=== PATIENT | female | born 1975 | race Caucasian/White ===

== ENCOUNTER 2016-08-30 17:37 | Emergency (ER) | payer OTHER ==
[~2016-08-30] VITALS: Ht 162.6 cm; Wt 83.5 kg
[2016-08-30 17:38] VITALS: BP 135/65
[2016-08-30] MEDS ORDERED: SYNT25TA PO (17:50)
[2016-08-30] MEDS ORDERED: DRIS50002 PO (17:50)
[2016-08-30] MEDS ORDERED: TOPA100T8 PO (17:50)
--- NOTE | 2016-08-30 19:45 | REP ---
CT Head without contrast HISTORY: Migraine headache COMPARISON: 03/12/2013 There is no intraparenchymal hemorrhage, acute infarct, mass or midline shift. The ventricular system is normal in appearance. There is no extra cerebral collection. There is no fracture. The visualized sinuses are clear. IMPRESSION: There is no intracranial lesion. Signed by Igor Jackson MD 08/30/2016 07:37 P
== END 2016-08-30 20:08 | disposition home or self-care (01) ==
LOC: M ED 18:51
DX: R51 Headache (principal); Z79.899 Other long term (current) drug therapy; Z88.5 Allergy status to narcotic agent; Z88.8 Allergy status to other drugs, medicaments and biological substances

== ENCOUNTER 2016-11-13 20:20 | Emergency (ER) | payer OTHER ==
[~2016-11-13] VITALS: Ht 162.6 cm; Wt 88.4 kg
[~2016-11-13 20:20] MED LIST: DRIS50002 PO; SYNT25TA PO; TOPA100T12 PO
[2016-11-13] MEDS ORDERED: NAPROXEN 250 MG TAB PO ONE (21:00)
[2016-11-13] MEDS ORDERED: CARISOPRODOL 350 MG TAB PO ONE (21:00)
[2016-11-13] MEDS ORDERED: CYCL10TA PO (21:04)
[2016-11-13] MEDS ORDERED: NAPR500T PO (21:04)
[2016-11-13 21:30] VITALS: BP 116/78
[2017-03-20] MEDS ORDERED: VALT1TAB PO (14:23)
[2017-03-20] MEDS ORDERED: KEFL500C17 PO (14:23)
[2017-03-20] MEDS ORDERED: NAPR500T PO (14:23)
== END 2016-11-13 21:32 | disposition home or self-care (01) ==
LOC: M ED 20:20
DX: M54.41 Lumbago with sciatica, right side (principal); M54.42 Lumbago with sciatica, left side; G43.909 Migraine, unspecified, not intractable, without status migrainosus; E03.9 Hypothyroidism, unspecified; Z79.899 Other long term (current) drug therapy; Z88.5 Allergy status to narcotic agent; Z88.8 Allergy status to other drugs, medicaments and biological substances

== ENCOUNTER 2016-11-22 22:35 | Emergency (ER) | payer OTHER ==
[~2016-11-22] VITALS: Ht 162.6 cm; Wt 89.6 kg
[~2016-11-22 22:35] MED LIST changes: +CYCL10TA PO; +NAPR500T PO
[2016-11-22] MEDS ORDERED: NAPROXEN 250 MG TAB PO ONE (23:15)
[2016-11-22] MEDS ORDERED: NAPR500T PO (23:56)
[2016-11-23] VITALS: BP 124/96
--- NOTE | 2016-11-23 02:19 | REP ---
Clinical: Trauma. Technique: AP, lateral, bilateral oblique views right foot . Findings: The osseous structures and joint spaces are intact and demonstrate age-related degenerative changes. There is no evidence for acute fracture or dislocation. Surrounding soft tissues are unremarkable. No subcutaneous emphysema or radiodense foreign body. Impression: Age-related degenerative changes. No acute fracture or dislocation. Signed by Ga Cowart MD 11/23/2016 02:11 A
[2017-03-20] MEDS ORDERED: KEFL500C17 PO (14:23)
[2017-03-20] MEDS ORDERED: NAPR500T PO (14:23)
[2017-03-20] MEDS ORDERED: VALT1TAB PO (14:23)
== END 2016-11-23 00:06 | disposition home or self-care (01) ==
LOC: M ED 22:35
DX: S90.31XA Contusion of right foot, initial encounter (principal); W23.1XXA Caught, crushed, jammed, or pinched between stationary objects, initial encounter; Y92.838 Other recreation area as the place of occurrence of the external cause; Y93.01 Activity, walking, marching and hiking; Y99.9 Unspecified external cause status

== ENCOUNTER 2018-02-25 20:36 | Emergency (ER) | payer SELFPAY, MEDICAID, OTHER ==
[2018-02-25] MEDS: KETOROLAC 60 MG/2 ML VIAL (J1885) IM (22:59)
[2018-02-26] MEDS ORDERED: ANEXSIA, NORCO 7.5MG/325MG TABLET(HYDROCODONE/APAP) PO (00:15)
[2018-02-26] MEDS: ANEXSIA, NORCO 7.5MG/325MG TABLET(HYDROCODONE/APAP) PO (00:20)
== END 2018-02-26 00:26 | disposition home or self-care (01) ==
LOC: M ED 02-26 00:26
DX: R51 Headache (principal); G58.8 Other specified mononeuropathies; M50.10 Cervical disc disorder with radiculopathy, unspecified cervical region; R42 Dizziness and giddiness; E03.9 Hypothyroidism, unspecified; Z86.69 Personal history of other diseases of the nervous system and sense organs; Z88.5 Allergy status to narcotic agent; Z88.8 Allergy status to other drugs, medicaments and biological substances
CPT/HCPCS: J1885

== ENCOUNTER → 2018-07-10 | Outpatient (REF) | payer OTHER, MEDICAID ==
[~2018-07-10] MED LIST changes: -DRIS50002 PO; +DRIS50003 PO; +KEFL500C17 PO; +MECL-86 PO; +NAPR-50 PO; -NAPR500T PO; +VALT1TAB PO
[2018-07-10 18:53] LABS: BASO % 0.5 % (0.0-1.0); EOS # 0.1 10^3/uL (0.0-0.50); EOS % 1.6 % (0.0-3.0); HEMOGLOBIN 14.4 g/dl (12.0-15.5); LYMPH % 33.9 % (24.0-44.0); MEAN CORPUSCULAR HEMOGLOBIN 28.1 pg (27.0-33.0); MEAN CORPUSCULAR HGB CONC 33.5 g/dl (32.0-36.5); MONO # 0.6 10^3/uL (0.0-0.8); MONO % 6.6 % (0.0-5.0); NEUTROPHILS % 56.9 % (36.0-66.0); PLATELET COUNT, AUTOMATED 344 10^3/uL (150-450); RED BLOOD COUNT 5.12 10^6/uL (4.00-5.40); WHITE BLOOD COUNT 8.8 10^3/uL (4.0-10.0)
[2018-07-10 19:05] LABS: ALBUMIN 3.9 GM/DL (3.2-5.2); ALT/SGPT 30 U/L (12-78); BILIRUBIN,TOTAL 0.3 MG/DL (0.2-1.0); BLOOD UREA NITROGEN 14 MG/DL (7-18); CALCIUM LEVEL 8.8 MG/DL (8.5-10.1); CARBON DIOXIDE LEVEL 25 MEQ/L (21-32); CHLORIDE LEVEL 106 MEQ/L (98-107); CHOLESTEROL LEVEL 156 MG/DL (<200); GLOMERULAR FILTRATION RATE > 60.0 (>58); GLUCOSE, FASTING 79 MG/DL (70-100); HDL CHOLESTEROL 30 MG/DL (>40); LDL CHOLESTEROL 89 MG/DL (<100); NON-HDL-C 126 MG/DL; POTASSIUM SERUM 4.3 MEQ/L (3.5-5.1); SODIUM LEVEL 139 MEQ/L (136-145); TOTAL PROTEIN 7.9 GM/DL (6.4-8.2); TRIGLYCERIDES LEVEL 185 MG/DL (<150)
[2018-07-10 19:19] LABS: HEMOGLOBIN A1c 5.4 %
[2018-07-11 09:04] LABS: TOTAL 25(OH) VITAMIN D 27.1 NG/ML (30.0-100.0)
== END ==
LOC: M LAB REF 17:37
PROVIDERS: ATTEND Nurse Practitioner Family
DX: Z13.9 Encounter for screening, unspecified (principal)

== ENCOUNTER 2019-01-02 16:58 | Emergency (ER) | payer OTHER ==
[~2019-01-02] VITALS: Ht 162.6 cm; Wt 85.0 kg
[~2019-01-02 16:58] MED LIST changes: +AUGM875T28 PO; +BUPR300T92; +LEVO25TA5; +MELO7.5T7; -NAPR-50 PO; +NAPR-837 PO; +TOPI50TA9; +TYLE500T78 PO
[2019-01-02 19:42] VITALS: BP 126/75
--- NOTE | 2019-01-03 09:40 | REP ---
Left ring finger four views: There is an intra-articular nondisplaced avulsion fracture at the base of the middle phalange anteriorly. There is no dislocation. Mineralization is normal. There is mild joint space narrowing of the PIP and DIP articulations compatible with mild osteoarthritis. Electronically Signed by Marko Velasquez MD 01/02/2019 06:32 P
== END 2019-01-02 19:43 | disposition home or self-care (01) ==
LOC: M ED 16:58
DX: S62.651A Nondisplaced fracture of middle phalanx of left index finger, initial encounter for closed fracture (principal); W50.1XXA Accidental kick by another person, initial encounter; Y92.9 Unspecified place or not applicable; Y93.11 Activity, swimming; Y99.9 Unspecified external cause status; E03.9 Hypothyroidism, unspecified; Z72.0 Tobacco use; Z79.899 Other long term (current) drug therapy; Z88.5 Allergy status to narcotic agent; Z88.6 Allergy status to analgesic agent

== ENCOUNTER 2019-02-11 16:45 | Emergency (ER) | payer OTHER ==
[~2019-02-11] VITALS: Ht 162.6 cm; Wt 94.8 kg
[~2019-02-11 16:45] MED LIST changes: +BUPR300T34; -BUPR300T92
[2019-02-11 21:15] VITALS: BP 126/74
[2019-02-11] MEDS ORDERED: AMOXICILLIN 500 MG CAP PO ONE (21:45)
[2019-02-11] MEDS ORDERED: ACETAMINOPHEN TAB 650MG DOSE (2X325MG) PO ONE (21:45)
[2019-02-11 22:15] LABS: INFLUENZA A AMPLIFICATION NEGATIVE (NEGATIVE); INFLUENZA B AMPLIFICATION NEGATIVE (NEGATIVE)
[2019-02-11] MEDS ORDERED: AMOX500C PO (22:30)
== END 2019-02-11 22:54 | disposition home or self-care (01) ==
LOC: M ED 16:45
DX: J02.9 Acute pharyngitis, unspecified (principal); E03.9 Hypothyroidism, unspecified; G43.909 Migraine, unspecified, not intractable, without status migrainosus; F41.9 Anxiety disorder, unspecified; F32.9 Major depressive disorder, single episode, unspecified

== ENCOUNTER 2019-11-14 17:09 | Emergency (ER) | payer OTHER ==
[~2019-11-14] VITALS: Ht 162.6 cm; Wt 93.6 kg
[~2019-11-14 17:09] MED LIST changes: +AMOX500C PO; -BUPR300T34; +BUPR300T92; +CYCL-707 PO; -CYCL10TA PO
[2019-11-14 17:10] VITALS: BP 135/77
[2019-11-14] MEDS ORDERED: FLUO20CA22 (17:15)
--- NOTE | 2019-11-14 18:51 | REP ---
Clinical: Trauma primarily involving first digit. Technique: AP, lateral, bilateral oblique views of the right hand. Findings: The osseous structures appear intact without evidence for acute fracture or dislocation. No subcutaneous emphysema. There appears to be a 4 mm foreign body in the subcutaneous tissues adjacent to the fifth carpometacarpal joint which requires correlation and may represent old injury. Impression: 1. No evidence for acute fracture dislocation. 2. Small foreign body requires correlation. Electronically Signed by Ga Cowart MD 11/14/2019 06:42 P
== END 2019-11-14 17:56 | disposition home or self-care (01) ==
LOC: M ED 17:09
DX: S67.01XA Crushing injury of right thumb, initial encounter (principal); Y92.009 Unspecified place in unspecified non-institutional (private) residence as the place of occurrence of the external cause; Y93.89 Activity, other specified; Y99.8 Other external cause status

== ENCOUNTER 2020-08-05 22:34 | Emergency (ER) | payer OTHER ==
[~2020-08-05] VITALS: Ht 162.6 cm; Wt 100.0 kg
[~2020-08-05 22:34] MED LIST changes: +FLUO20CA22
[2020-08-05] MEDS ORDERED: MECL-86 (22:53)
[2020-08-05] MEDS ORDERED: LEVO25TA5 (22:53)
[2020-08-05] MEDS ORDERED: ALBU8.5H (22:53)
[2020-08-05] MEDS ORDERED: NALT50TA4 (22:53)
[2020-08-05] MEDS ORDERED: HYDR-3363 (22:53)
[2020-08-05] MEDS ORDERED: FUROSEMIDE 40MG/4ML VIAL (J1940) IV ONE (23:20)
[2020-08-05 23:27] LABS: BASO # 0.1 10^3/uL (0.0-0.2); BASO % 0.6 % (0.0-1.0); EOS # 0.1 10^3/uL (0.0-0.5); EOS % 1.4 % (0.0-3.0); HEMATOCRIT 38.4 % (36.0-47.0); HEMOGLOBIN 12.6 g/dl (12.0-15.5); LYMPH # 3.7 10^3/uL (1.5-5.0); LYMPH % 42.6 % (24.0-44.0); MEAN CORPUSCULAR HEMOGLOBIN 27.7 pg (27.0-33.0); MEAN CORPUSCULAR HGB CONC 32.8 g/dl (32.0-36.5); MEAN CORPUSCULAR VOLUME 84.4 fl (80.0-96.0); MONO # 0.5 10^3/uL (0.0-0.8); MONO % 5.3 % (2.0-8.0); NEUTROPHILS # 4.3 10^3/uL (1.5-8.5); NEUTROPHILS % 49.6 % (36.0-66.0); PLATELET COUNT, AUTOMATED 302 10^3/uL (150-450); RED BLOOD COUNT 4.55 10^6/uL (4.00-5.40); WHITE BLOOD COUNT 8.7 10^3/uL (4.0-10.0)
[2020-08-05 23:38] LABS: INR 0.94; PROTHROMBIN TIME 12.7 SECONDS (12.5-14.3)
[2020-08-05 23:54] LABS: HCG, SERUM QUALITATIVE NEGATIVE (NEGATIVE)
[2020-08-05 23:57] LABS: ALBUMIN 3.4 GM/DL (3.2-5.2); ALT/SGPT 36 U/L (12-78); BILIRUBIN,DIRECT < 0.1 MG/DL (0.0-0.2); BILIRUBIN,TOTAL 0.2 MG/DL (0.2-1.0); BLOOD UREA NITROGEN 12 MG/DL (7-18); CALCIUM LEVEL 8.6 MG/DL (8.5-10.1); CARBON DIOXIDE LEVEL 27 MEQ/L (21-32); CHLORIDE LEVEL 107 MEQ/L (98-107); CK-MB VALUE MASS 1.7 NG/ML (<3.6); CPK CREATINE PHOSPHOKINASE 57 U/L (26-192); CREATININE FOR GFR 0.83 MG/DL (0.55-1.30); GLOMERULAR FILTRATION RATE > 60.0 (>58); GLUCOSE, FASTING 114 MG/DL (70-100); LIPASE 143 U/L (73-393); MB/CK RELATIVE INDEX 2.98 (< OR =4); NT-PRO BNP 17 PG/ML (<125); POTASSIUM SERUM 3.7 MEQ/L (3.5-5.1); SODIUM LEVEL 140 MEQ/L (136-145); TOTAL PROTEIN 7.2 GM/DL (6.4-8.2); TROPONIN I < 0.02 NG/ML (< 0.10)
--- NOTE | 2020-08-06 01:14 | REPVR ---
PROCEDURE INFORMATION: Exam: XR Chest Exam date and time: 08/06/2020 12:37 AM Age: 44 years old Clinical indication: Pain; Chest pressure; Additional info: Chest pain TECHNIQUE: Imaging protocol: XR of the chest Views: 1 view. COMPARISON: No relevant prior studies available. FINDINGS: Lungs: Unremarkable. No consolidation. Pleural spaces: Unremarkable. No pleural effusion. No pneumothorax. Heart/Mediastinum: Unremarkable. No cardiomegaly. Bones/joints: Unremarkable. IMPRESSION: No acute infiltrates. Electronically signed by: Margret Sebastian On 08/06/2020 01:13:19 AM
[2020-08-06 02:30] VITALS: BP 125/66
[2020-08-06] MEDS ORDERED: LASI20TA3 PO (02:33)
--- NOTE | 2020-08-07 01:30 | ECGEPIP ---
[facility] - ED Test Date: 2020-08-05 Pat Name: SOSA FAIR Department: Room: - Gender: Female Trauma Manager: thee : 1975 Requested By: ANDREA LEE Order Number: [id number] Reading MD: Socrates See Measurements Intervals [place] Rate: 85 P: 33 MA: 156 QRS: 59 QRSD: 86 T: 42 QT: 396 QTc: 471 Interpretive Statements Normal sinus rhythm POOR R WAVE PROGRESSION NO PRIORS FOR COMPARISON Electronically Signed on 08-07-2020 1:30:04 EDT by Socrates See
== END 2020-08-06 02:44 | disposition home or self-care (01) ==
LOC: M ED 22:34
DX: R22.43 Localized swelling, mass and lump, lower limb, bilateral (principal); I10 Essential (primary) hypertension; Z88.6 Allergy status to analgesic agent
CPT/HCPCS: 71045; 80048; 80076; 82550; 82553; 83690; 83880; 84703; 85025; 85610; 93005; 93041; 94760; 96374; 99285; J1940

== ENCOUNTER 2020-08-10 20:49 | Emergency (ER) | payer OTHER ==
[~2020-08-10] VITALS: Ht 162.6 cm; Wt 101.0 kg
[~2020-08-10 20:49] MED LIST changes: +ALBU8.5H; +HYDR-3363; +LASI20TA3 PO; +MECL-86; +NALT50TA4
[2020-08-10] MEDS ORDERED: METH4PACK (20:58)
[2020-08-10] MEDS ORDERED: FURO20TA2 (20:58)
[2020-08-10] MEDS ORDERED: MELO15TA28 (20:58)
[2020-08-10] MEDS ORDERED: ACETAMINOPHEN 500 MG TAB PO ONE (22:45)
--- NOTE | 2020-08-10 22:50 | REPVR ---
PROCEDURE INFORMATION: Exam: XR Left Knee Exam date and time: 08/10/2020 9:12 PM Age: 44 years old Clinical indication: Pain; Knee; Left; Additional info: Injury TECHNIQUE: Imaging protocol: XR Left knee. Views: 4 or more views. COMPARISON: No relevant prior studies available. FINDINGS: Bones/joints: Diffuse demineralization of the bones. No acute fracture. No dislocation. Soft tissues: Normal. IMPRESSION: No acute abnormality Electronically signed by: Kenneth Perales On 08/10/2020 22:50:30 PM
[2020-08-10 23:08] VITALS: BP 127/71
== END 2020-08-10 23:12 | disposition home or self-care (01) ==
LOC: M ED 20:49
DX: M25.562 Pain in left knee (principal); J84.10 Pulmonary fibrosis, unspecified; I10 Essential (primary) hypertension; Z79.51 Long term (current) use of inhaled steroids; Z79.899 Other long term (current) drug therapy; Z88.6 Allergy status to analgesic agent

== ENCOUNTER 2021-02-04 23:06 | Emergency (ER) | payer OTHER ==
[~2021-02-04] VITALS: Ht 162.6 cm; Wt 100.8 kg
[~2021-02-04 23:06] MED LIST changes: +FURO20TA2; +MELO15TA28; +METH4PACK
[2021-02-04 23:07] VITALS: BP 138/82
== END 2021-02-05 03:35 | disposition left against medical advice (07) ==
LOC: M ED 23:06
DX: Z53.21 Procedure and treatment not carried out due to patient leaving prior to being seen by health care provider (principal)

== ENCOUNTER → 2021-05-11 | Outpatient (REF) | payer OTHER ==
[2021-05-11 21:38] LABS: RSV AMPLIFICATION NEGATIVE (NEGATIVE)
== END ==
LOC: M LAB REF 20:45
PROVIDERS: ATTEND Physician Assistant Medical
DX: R50.9 Fever, unspecified (principal)

== ENCOUNTER 2021-09-01 15:34 | Emergency (ER) | payer OTHER ==
[~2021-09-01] VITALS: Ht 162.6 cm; Wt 95.5 kg
[2021-09-01 16:25] VITALS: BP 143/85
[2021-09-01 16:26] LABS: BASO # 0.1 10^3/uL (0.0-0.2); BASO % 0.6 % (0.0-1.0); EOS # 0.1 10^3/uL (0.0-0.5); EOS % 1.3 % (0.0-3.0); HEMATOCRIT 38.7 % (36.0-47.0); HEMOGLOBIN 12.9 g/dl (12.0-15.5); LYMPH # 3.6 10^3/uL (1.5-5.0); LYMPH % 37.6 % (24.0-44.0); MEAN CORPUSCULAR HEMOGLOBIN 28.2 pg (27.0-33.0); MEAN CORPUSCULAR HGB CONC 33.3 g/dl (32.0-36.5); MEAN CORPUSCULAR VOLUME 84.7 fl (80.0-96.0); MONO # 0.6 10^3/uL (0.0-0.8); MONO % 6.6 % (2.0-8.0); NEUTROPHILS # 5.1 10^3/uL (1.5-8.5); NEUTROPHILS % 53.7 % (36.0-66.0); PLATELET COUNT, AUTOMATED 341 10^3/uL (150-450); RED BLOOD COUNT 4.57 10^6/uL (4.00-5.40); WHITE BLOOD COUNT 9.5 10^3/uL (4.0-10.0)
[2021-09-01 17:07] LABS: BLOOD UREA NITROGEN 12 MG/DL (7-18); CALCIUM LEVEL 8.9 MG/DL (8.5-10.1); CARBON DIOXIDE LEVEL 29 MEQ/L (21-32); CHLORIDE LEVEL 108 MEQ/L (98-107); CREATININE FOR GFR 0.78 MG/DL (0.55-1.30); GLOMERULAR FILTRATION RATE > 60.0 (>58); GLUCOSE, FASTING 90 MG/DL (70-100); HCG, SERUM QUANTITATIVE < 1.0 MIU/ML; POTASSIUM SERUM 3.9 MEQ/L (3.5-5.1); SODIUM LEVEL 139 MEQ/L (136-145)
== END 2021-09-01 19:09 | disposition home or self-care (01) ==
LOC: M ED 15:34
DX: N93.8 Other specified abnormal uterine and vaginal bleeding (principal); I10 Essential (primary) hypertension; G43.909 Migraine, unspecified, not intractable, without status migrainosus; E03.9 Hypothyroidism, unspecified; J84.10 Pulmonary fibrosis, unspecified; Z79.899 Other long term (current) drug therapy; Z88.5 Allergy status to narcotic agent; Z88.6 Allergy status to analgesic agent

== ENCOUNTER → 2021-12-21 | Outpatient (REF) | LOC: M LAB 13:32 | PROVIDERS: ATTEND Nurse Practitioner Adult Health | DX: Z00.00 Encounter for general adult medical examination without abnormal findings (principal) ==

== ENCOUNTER → 2021-12-27 | Outpatient (REF) | LOC: M EMP 12:27 | PROVIDERS: ATTEND Family Medicine | DX: Z00.00 Encounter for general adult medical examination without abnormal findings (principal) ==

== ENCOUNTER → 2022-01-03 | Outpatient (REF) | LOC: M EMP 13:03 | PROVIDERS: ATTEND Family Medicine | DX: Z11.52 Encounter for screening for COVID-19 (principal) ==

== ENCOUNTER → 2022-01-11 | Outpatient (REF) | LOC: M EMP 12:23 | PROVIDERS: ATTEND Family Medicine | DX: Z11.52 Encounter for screening for COVID-19 (principal) ==

== ENCOUNTER 2022-06-04 11:05 | Emergency (ER) | payer OTHER ==
[~2022-06-04] VITALS: Ht 162.6 cm; Wt 89.7 kg
[2022-06-04] MEDS ORDERED: MECLIZINE 25 MG TABLET PO ONE (12:45)
[2022-06-04] MEDS ORDERED: ONDANSETRON 4MG ORAL DISINTEGRATING TAB PO ONE (12:45)
[2022-06-04] MEDS ORDERED: METO10TA2 (13:02)
[2022-06-04] MEDS ORDERED: CITA10TA7 (13:02)
[2022-06-04] MEDS ORDERED: NS 1,000 ML IV ONE (13:50)
[2022-06-04 14:25] LABS: BASO % 0.5 % (0.0-1.0); EOS % 0.4 % (0.0-3.0); HEMATOCRIT 41.1 % (36.0-47.0); HEMOGLOBIN 13.5 g/dl (12.0-15.5); LYMPH # 1.7 10^3/uL (1.5-5.0); MEAN CORPUSCULAR HEMOGLOBIN 26.9 pg (27.0-33.0); MEAN CORPUSCULAR HGB CONC 32.8 g/dl (32.0-36.5); MEAN CORPUSCULAR VOLUME 81.9 fl (80.0-96.0); MONO # 0.4 10^3/uL (0.0-0.8); MONO % 4.5 % (2.0-8.0); NEUTROPHILS # 6.3 10^3/uL (1.5-8.5); NEUTROPHILS % 74.1 % (36.0-66.0); PLATELET COUNT, AUTOMATED 325 10^3/uL (150-450); RED BLOOD COUNT 5.02 10^6/uL (4.00-5.40); WHITE BLOOD COUNT 8.5 10^3/uL (4.0-10.0)
[2022-06-04 14:57] LABS: BLOOD UREA NITROGEN 15 MG/DL (9-23); CALCIUM LEVEL 9.5 MG/DL (8.5-10.1); CARBON DIOXIDE LEVEL 28 MMOL/L (20-31); CHLORIDE LEVEL 104 MMOL/L (98-107); CREATININE FOR GFR 0.73 MG/DL (0.55-1.30); GLOMERULAR FILTRATION RATE > 60.0 (>58); GLUCOSE, FASTING 91 MG/DL (60-100); POTASSIUM SERUM 4.7 MMOL/L (3.5-5.1); SODIUM LEVEL 138 MMOL/L (136-145)
[2022-06-04 15:00] LABS: THYROID STIMULATING HORMONE 2.894 uIU/ML (0.55-4.78)
[2022-06-04] MEDS ORDERED: ACETAMINOPHEN 1000MG 100ML IV BAG IV ONE (15:10)
[2022-06-04] MEDS ORDERED: PROMETHAZINE 25MG/ML 1ML VIAL IV ONE (15:55)
[2022-06-04 16:04] LABS: HCG, SERUM QUALITATIVE NEGATIVE (NEGATIVE)
[2022-06-04 17:35] VITALS: BP 134/73
[2022-06-04] MEDS ORDERED: KETOROLAC 30 MG/ML 1ML VIAL IV ONE (18:00)
[2022-06-04] MEDS ORDERED: MECL-86 PO (19:33)
== END 2022-06-04 19:47 | disposition home or self-care (01) ==
LOC: M ED 11:05
DX: H81.10 Benign paroxysmal vertigo, unspecified ear (principal); R11.0 Nausea; R00.1 Bradycardia, unspecified; J45.909 Unspecified asthma, uncomplicated; E03.9 Hypothyroidism, unspecified; Z90.49 Acquired absence of other specified parts of digestive tract; Z88.5 Allergy status to narcotic agent; Z88.6 Allergy status to analgesic agent; Z79.51 Long term (current) use of inhaled steroids; Z79.890 Hormone replacement therapy; Z79.899 Other long term (current) drug therapy

== ENCOUNTER 2022-06-21 02:33 | Emergency (ER) | payer OTHER ==
[~2022-06-21] VITALS: Ht 162.6 cm; Wt 93.3 kg
[~2022-06-21 02:33] MED LIST changes: +CITA10TA7; +METO10TA2
[2022-06-21 07:12] VITALS: BP 122/61
[2022-06-21] MEDS ORDERED: ACETAMINOPHEN 500 MG TAB PO ONE (08:15)
== END 2022-06-21 08:30 | disposition home or self-care (01) ==
LOC: M ED 02:33
DX: S89.92XA Unspecified injury of left lower leg, initial encounter (principal); S90.122A Contusion of left lesser toe(s) without damage to nail, initial encounter; W10.9XXA Fall (on) (from) unspecified stairs and steps, initial encounter; Y92.009 Unspecified place in unspecified non-institutional (private) residence as the place of occurrence of the external cause; I10 Essential (primary) hypertension; Z88.5 Allergy status to narcotic agent; Z88.9 Allergy status to unspecified drugs, medicaments and biological substances; Z79.899 Other long term (current) drug therapy

== ENCOUNTER → 2022-07-23 | Outpatient (REF) | payer OTHER, BC, MEDICAID ==
[~2022-07-23] MED LIST changes: +OMEP40CA5; +TOPI-254; -TOPI50TA9
== END ==
LOC: M LAB REF 15:37
PROVIDERS: ATTEND Internal Medicine Gastroenterology
DX: R10.13 Epigastric pain (principal)

== ENCOUNTER → 2022-07-27 | Outpatient (CLI) | payer BC, MEDICAID, OTHER | LOC: M LABSMTC 11:29 | PROVIDERS: ATTEND Anesthesiology | DX: Z01.818 Encounter for other preprocedural examination (principal); Z11.52 Encounter for screening for COVID-19 ==

== ENCOUNTER → 2022-08-01 | Day surgery (SDC) | payer OTHER ==
[~2022-08-01] VITALS: Ht 162.6 cm; Wt 90.7 kg
[~2022-08-01] MED LIST changes: +NS 1,000 ML IV ONE
== END | disposition home or self-care (01) ==
LOC: M OPP 11:02
PROVIDERS: ATTEND Internal Medicine Gastroenterology
DX: R19.7 Diarrhea, unspecified (principal); Z53.8 Procedure and treatment not carried out for other reasons

== ENCOUNTER 2023-01-10 20:21 | Emergency (ER) | payer OTHER ==
[~2023-01-10] VITALS: Ht 162.6 cm; Wt 97.0 kg
[~2023-01-10 20:21] MED LIST changes: -NS 1,000 ML IV ONE
[2023-01-10] MEDS ORDERED: LIDOCAINE 5% (LIDODERM) PATCH TD ONE (22:50)
[2023-01-10] MEDS ORDERED: MENT118S2 TP (22:50)
[2023-01-10 23:00] VITALS: BP 125/75; TEMP 97.5; O2SAT 99
== END 2023-01-11 02:35 | disposition home or self-care (01) ==
LOC: M ED 20:21
DX: S49.91XA Unspecified injury of right shoulder and upper arm, initial encounter (principal); S90.111A Contusion of right great toe without damage to nail, initial encounter; Y04.0XXA Assault by unarmed brawl or fight, initial encounter; Y92.89 Other specified places as the place of occurrence of the external cause; Y93.89 Activity, other specified; Y99.8 Other external cause status; I10 Essential (primary) hypertension; J45.909 Unspecified asthma, uncomplicated; E03.9 Hypothyroidism, unspecified; Z88.5 Allergy status to narcotic agent; Z88.6 Allergy status to analgesic agent; F41.9 Anxiety disorder, unspecified; F32.A Depression, unspecified

== ENCOUNTER 2023-04-13 18:57 | Emergency (ER) | payer OTHER, SELFPAY ==
[~2023-04-13] VITALS: Ht 162.6 cm; Wt 91.9 kg
[~2023-04-13 18:57] MED LIST changes: +MENT118S2 TP
[2023-04-13] MEDS ORDERED: GABA-282 (19:14)
[2023-04-13] MEDS ORDERED: CITA20TA7 (19:14)
[2023-04-13 22:30] VITALS: BP 127/70; TEMP 97.5; O2SAT 97
== END 2023-04-14 00:32 | disposition left against medical advice (07) ==
LOC: M ED 18:57
DX: Z53.21 Procedure and treatment not carried out due to patient leaving prior to being seen by health care provider (principal)

== ENCOUNTER → 2023-06-29 | Outpatient (REF) | payer OTHER ==
[~2023-06-29] MED LIST changes: +CITA20TA7; +GABA-282; +TOPI-21; -TOPI-254
== END ==
LOC: M LAB REF 16:19
PROVIDERS: ATTEND Physician Assistant Medical
DX: B34.9 Viral infection, unspecified (principal)

== ENCOUNTER 2023-07-23 11:15 | Emergency (ER) | payer OTHER ==
[~2023-07-23] VITALS: Ht 162.6 cm; Wt 94.2 kg
[2023-07-23 12:13] LABS: BASO % 0.7 % (0.0-1.0); EOS # 0.1 10^3/uL (0.0-0.5); EOS % 2.2 % (0.0-3.0); HEMATOCRIT 42.9 % (36.0-47.0); HEMOGLOBIN 14.4 g/dl (12.0-15.5); LYMPH # 2.5 10^3/uL (1.5-5.0); LYMPH % 46.5 % (24.0-44.0); MEAN CORPUSCULAR HEMOGLOBIN 28.1 pg (27.0-33.0); MEAN CORPUSCULAR HGB CONC 33.6 g/dl (32.0-36.5); MEAN CORPUSCULAR VOLUME 83.6 fl (80.0-96.0); MONO # 0.3 10^3/uL (0.0-0.8); NEUTROPHILS # 2.4 10^3/uL (1.5-8.5); NEUTROPHILS % 45.2 % (36.0-66.0); PLATELET COUNT, AUTOMATED 319 10^3/uL (150-450); RED BLOOD COUNT 5.13 10^6/uL (4.00-5.40); WHITE BLOOD COUNT 5.4 10^3/uL (4.0-10.0)
[2023-07-23 12:20] LABS: ERYTHROCYTE SEDIMENTATION RATE 24 mm/hr (0-20)
[2023-07-23 12:26] LABS: INR 1.07; PARTIAL THROMBOPLASTIN TIME 27.3 SECONDS (24.8-34.2); PROTHROMBIN TIME 13.6 SECONDS (12.5-14.5)
[2023-07-23 12:40] LABS: LIPASE 33 U/L (12-53)
[2023-07-23 12:41] LABS: ALBUMIN 3.6 G/DL (3.2-5.2); ALKALINE PHOSPHATASE 73 U/L (46-116); ALT/SGPT 23 U/L (7.0-40); AST/SGOT 16 U/L (<34); BILIRUBIN,DIRECT 0.1 MG/DL (<0.4); BILIRUBIN,TOTAL 0.4 MG/DL (0.3-1.2); BLOOD UREA NITROGEN 11 MG/DL (9-23); CALCIUM LEVEL 8.5 MG/DL (8.5-10.1); CARBON DIOXIDE LEVEL 26 MMOL/L (20-31); CHLORIDE LEVEL 104 MMOL/L (98-107); CREATININE FOR GFR 0.69 MG/DL (0.55-1.30); GLOMERULAR FILTRATION RATE > 60.0 (>58); GLUCOSE, FASTING 138 MG/DL (60-100); POTASSIUM SERUM 4.1 MMOL/L (3.5-5.1); SODIUM LEVEL 139 MMOL/L (136-145); TOTAL PROTEIN 7.3 G/DL (5.7-8.2)
[2023-07-23 12:42] LABS: CK-MB VALUE MASS 2.3 NG/ML (<3.6)
[2023-07-23 12:45] LABS: THYROID STIMULATING HORMONE 4.147 uIU/ML (0.55-4.78)
[2023-07-23 12:46] LABS: CPK CREATINE PHOSPHOKINASE 94 U/L (34-145); FREE T4 0.91 NG/DL (0.89-1.76); MB/CK RELATIVE INDEX 2.44 (< OR =4)
[2023-07-23] MEDS ORDERED: ISOVUE-370 76% 100ML VIAL As Ordered ONE (12:53)
[2023-07-23 13:09] LABS: APPEARANCE, URINE CLEAR (CLEAR); BACTERIA, URINE AUTO 1+ (NEGATIVE); BILIRUBIN, URINE AUTO NEGATIVE (NEGATIVE); BLOOD, URINE BLOOD 3+ (NEGATIVE); COLOR, URINE YELLOW (YELLOW); GLUCOSE, URINE (UA) AUTO NEGATIVE (NEGATIVE); KETONE, URINE AUTO NEGATIVE (NEGATIVE); LEUKOCYTE ESTERASE, URINE AUTO NEGATIVE (NEGATIVE); MUCUS, URINE SMALL (NEGATIVE); NITRITE, URINE AUTO NEGATIVE (NEGATIVE); PROTEIN, URINE AUTO NEGATIVE (NEGATIVE); RBC, URINE AUTO 23 /HPF (0-3); SPECIFIC GRAVITY URINE AUTO 1.016 (1.002-1.035); SQUAMOUS EPITHELIAL CELL UR AU 2 /HPF (0-6); UROBILINOGEN, URINE AUTO 0.2 mg/dL (0.0-2.0); WBC, URINE AUTO 5 /HPF (0-3)
[2023-07-23] MEDS: KETOROLAC 30 MG/ML 1ML VIAL IV ONE (14:09)
[2023-07-23 15:33] VITALS: BP 145/85; TEMP 98.1; O2SAT 98
== END 2023-07-23 15:36 | disposition home or self-care (01) ==
LOC: M ED 11:15
DX: R07.1 Chest pain on breathing (principal); N95.0 Postmenopausal bleeding; Z88.5 Allergy status to narcotic agent; Z88.6 Allergy status to analgesic agent
CPT/HCPCS: 71046; 71275; 74177; 76830; 76856; 80048; 80076; 81001; 82550; 82553; 83690; 83880; 84439; 84443; 85025; 85610; 85652; 85730; 86140; 86850; 86900; 86901; 93005; 93976; 96374; 99284; J1885; Q9967

== ENCOUNTER → 2023-08-14 | Outpatient (REF) | payer OTHER | LOC: M SFHCWAGY 10:23 | PROVIDERS: ATTEND Obstetrics & Gynecology | DX: N95.0 Postmenopausal bleeding (principal) ==

== ENCOUNTER → 2023-08-14 | Outpatient (REF) | payer OTHER ==
[2023-08-14 17:24] LABS: BASO % 0.6 % (0.0-1.0); EOS # 0.1 10^3/uL (0.0-0.5); EOS % 1.5 % (0.0-3.0); HEMATOCRIT 41.9 % (36.0-47.0); HEMOGLOBIN 14.2 g/dl (12.0-15.5); LYMPH # 2.9 10^3/uL (1.5-5.0); MEAN CORPUSCULAR HGB CONC 33.9 g/dl (32.0-36.5); MEAN CORPUSCULAR VOLUME 82.5 fl (80.0-96.0); MONO # 0.4 10^3/uL (0.0-0.8); MONO % 6.5 % (2.0-8.0); NEUTROPHILS # 3.3 10^3/uL (1.5-8.5); NEUTROPHILS % 48.1 % (36.0-66.0); PLATELET COUNT, AUTOMATED 272 10^3/uL (150-450); RED BLOOD COUNT 5.08 10^6/uL (4.00-5.40); WHITE BLOOD COUNT 6.8 10^3/uL (4.0-10.0)
[2023-08-14 17:31] LABS: ALKALINE PHOSPHATASE 80 U/L (46-116); ALT/SGPT 36 U/L (7.0-40); AST/SGOT 21 U/L (<34); BILIRUBIN,TOTAL 0.3 MG/DL (0.3-1.2); BLOOD UREA NITROGEN 16 MG/DL (9-23); CALCIUM LEVEL 9.6 MG/DL (8.5-10.1); CARBON DIOXIDE LEVEL 30 MMOL/L (20-31); CHLORIDE LEVEL 104 MMOL/L (98-107); CHOLESTEROL LEVEL 185 MG/DL (<200); CHOLESTEROL RISK RATIO 5.18 (<5); CREATININE FOR GFR 0.75 MG/DL (0.55-1.30); GLOMERULAR FILTRATION RATE > 60.0 (>58); GLUCOSE, FASTING 99 MG/DL (60-100); HDL CHOLESTEROL 35.7 MG/DL (>40); LDL CHOLESTEROL 96.1 MG/DL (<100); NON-HDL-C 149.3 MG/DL; POTASSIUM SERUM 4.2 MMOL/L (3.5-5.1); SODIUM LEVEL 137 MMOL/L (136-145); TOTAL PROTEIN 7.6 G/DL (5.7-8.2); TRIGLYCERIDES LEVEL 266 MG/DL (<150)
[2023-08-14 17:33] LABS: TOTAL 25(OH) VITAMIN D 7.6 NG/ML (20.0-100.0)
[2023-08-14 17:48] LABS: HEMOGLOBIN A1c 5.7 % (4.0-6.0)
== END ==
LOC: M LAB REF 16:27
PROVIDERS: ATTEND Nurse Practitioner Family
DX: E66.3 Overweight (principal); E55.9 Vitamin D deficiency, unspecified; R53.83 Other fatigue; Z11.9 Encounter for screening for infectious and parasitic diseases, unspecified

== ENCOUNTER → 2023-10-23 | Outpatient (REF) | payer OTHER ==
[~2023-10-23] MED LIST changes: +BUPR-597; -BUPR300T92; +FLUO-365; -FLUO20CA22
== END ==
LOC: M LAB REF 12:39
PROVIDERS: ATTEND Nurse Practitioner Family
DX: J02.9 Acute pharyngitis, unspecified (principal)

== ENCOUNTER → 2023-10-25 | Outpatient (CLI) | payer OTHER | LOC: M EKG 15:09 | PROVIDERS: ATTEND Nurse Practitioner Family | DX: R00.2 Palpitations (principal) ==

== ENCOUNTER → 2024-09-19 | Outpatient (REF) | payer OTHER ==
[~2024-09-19] MED LIST changes: -BUPR-597; +BUPR-766; +GABA-1172; -GABA-282
[2024-09-19 18:46] LABS: BASO # 0.1 10^3/uL (0.0-0.2); BASO % 0.8 % (0.0-1.0); EOS # 0.1 10^3/uL (0.0-0.5); EOS % 1.2 % (0.0-3.0); HEMATOCRIT 42.3 % (36.0-47.0); HEMOGLOBIN 13.9 g/dl (12.0-15.5); LYMPH # 3.4 10^3/uL (1.5-5.0); LYMPH % 44.7 % (24.0-44.0); MEAN CORPUSCULAR HEMOGLOBIN 27.6 pg (27.0-33.0); MEAN CORPUSCULAR HGB CONC 32.9 g/dl (32.0-36.5); MEAN CORPUSCULAR VOLUME 84.1 fl (80.0-96.0); MONO # 0.4 10^3/uL (0.0-0.8); MONO % 5.3 % (2.0-8.0); NEUTROPHILS # 3.6 10^3/uL (1.5-8.5); NEUTROPHILS % 47.6 % (36.0-66.0); PLATELET COUNT, AUTOMATED 348 10^3/uL (150-450); RED BLOOD COUNT 5.03 10^6/uL (4.00-5.40); WHITE BLOOD COUNT 7.6 10^3/uL (4.0-10.0)
[2024-09-19 19:04] LABS: ERYTHROCYTE SEDIMENTATION RATE 30 mm/hr (0-30)
== END ==
LOC: M LAB REF 17:24
PROVIDERS: ATTEND Nurse Practitioner Family
DX: R59.1 Generalized enlarged lymph nodes (principal)

== ENCOUNTER 2025-03-22 22:28 | Emergency (ER) | payer OTHER ==
[~2025-03-22] VITALS: Ht 162.6 cm; Wt 95.4 kg
[2025-03-23] MEDS: ALBUTEROL 90 MCG/ACT 8 GM HFA INHALER INH ONE (00:17)
[2025-03-23] MEDS: BENZONATATE 100 MG CAPSULE PO ONE (00:17)
[2025-03-23] MEDS ORDERED: NIRM1TAB16 PO (00:18)
[2025-03-23] MEDS ORDERED: VENTAER INH (00:18)
[2025-03-23 00:52] VITALS: BP 132/69; TEMP 98.1; O2SAT 97
== END 2025-03-23 00:52 | disposition home or self-care (01) ==
LOC: M ED 22:28
DX: U07.1 COVID-19 (principal); Z88.5 Allergy status to narcotic agent; Z88.6 Allergy status to analgesic agent; Z79.51 Long term (current) use of inhaled steroids

== ENCOUNTER 2025-04-01 14:18 | Emergency (ER) | payer OTHER ==
[~2025-04-01] VITALS: Ht 162.6 cm; Wt 91.3 kg
[~2025-04-01 14:18] MED LIST changes: +NIRM1TAB16 PO; +VENTAER INH
[2025-04-01] MEDS ORDERED: CLON0.5T2 PO (14:44)
[2025-04-01 14:49] LABS: BASO # 0.0 10^3/uL (0.0-0.2); BASO % 0.6 % (0.0-1.0); EOS # 0.1 10^3/uL (0.0-0.5); EOS % 0.7 % (0.0-3.0); LYMPH # 3.0 10^3/uL (1.5-5.0); LYMPH % 41.0 % (24.0-44.0); MONO # 0.3 10^3/uL (0.0-0.8); MONO % 3.9 % (2.0-8.0); NEUTROPHILS # 3.9 10^3/uL (1.5-8.5); NEUTROPHILS % 53.2 % (36.0-66.0); PLATELET COUNT, AUTOMATED 349 10^3/uL (150-450)
[2025-04-01] MEDS ORDERED: ISOVUE-370 76% 100 ML VIAL As Ordered ONE (15:11)
[2025-04-01 15:13] LABS: CK-MB VALUE MASS < 1.0 NG/ML (<3.6)
[2025-04-01 15:16] LABS: CALCIUM LEVEL 9.3 MG/DL (8.5-10.1); CARBON DIOXIDE LEVEL 25 MMOL/L (20-31); CHLORIDE LEVEL 107 MMOL/L (98-107); CREATININE FOR GFR 0.74 MG/DL (0.55-1.30); GLOMERULAR FILTRATION RATE > 90.0 (>51); POTASSIUM SERUM 3.8 MMOL/L (3.5-5.1); SODIUM LEVEL 142 MMOL/L (136-145)
[2025-04-01 15:17] LABS: FREE T4 0.98 NG/DL (0.89-1.76)
[2025-04-01 15:20] LABS: CPK CREATINE PHOSPHOKINASE 46 U/L (34-145)
[2025-04-01 16:21] LABS: CK-MB VALUE MASS < 1.0 NG/ML (<3.6)
[2025-04-01 16:23] LABS: CPK CREATINE PHOSPHOKINASE 43 U/L (34-145)
[2025-04-01 16:45] VITALS: BP 135/74
[2025-04-01 17:30] VITALS: TEMP 97.6; O2SAT 99
== END 2025-04-01 17:55 | disposition home or self-care (01) ==
LOC: M ED 14:18 → EDBD 14:18 → M ED 17:55
DX: R07.9 Chest pain, unspecified (principal); E78.5 Hyperlipidemia, unspecified; Z88.5 Allergy status to narcotic agent; Z88.6 Allergy status to analgesic agent; Z79.51 Long term (current) use of inhaled steroids; Z79.899 Other long term (current) drug therapy
CPT/HCPCS: 36415; 71045; 71275; 80047; 80048; 82550; 82553; 84439; 84443; 84484; 85025; 93005; 93041; 94760; 99285; Q9967

== ENCOUNTER → 2025-04-12 | Outpatient (CLI) | payer OTHER ==
[~2025-04-12] MED LIST changes: +CLON0.5T2 PO
== END ==
LOC: M EKG 11:41
PROVIDERS: ATTEND Physician Assistant
DX: R00.2 Palpitations (principal); Z53.9 Procedure and treatment not carried out, unspecified reason

== ENCOUNTER → 2025-04-15 | Outpatient (REF) | payer OTHER ==
[2025-04-15 15:07] LABS: ESTIMATED AVERAGE GLUCOSE 117.0 MG/DL (60-110)
[2025-04-15 15:12] LABS: CHOLESTEROL LEVEL 189.0 MG/DL (<200); CHOLESTEROL RISK RATIO 5.23 (<5); IRON (FE) 62.0 UG/DL (50-170); LDL CHOLESTEROL 99.3 MG/DL (<100); NON-HDL-C 152.9 MG/DL; PERCENT SATURATION 18.9 % (13.2-45.0); TRIGLYCERIDES LEVEL 268.0 MG/DL (<150)
== END ==
LOC: M LAB REF 13:56
PROVIDERS: ATTEND Nurse Practitioner Family
DX: R06.02 Shortness of breath (principal); E78.00 Pure hypercholesterolemia, unspecified; E66.812 Obesity, class 2